=== PATIENT | male | born 1980 | race Two or more races ===

== ENCOUNTER 2018-12-09 14:26 | Emergency (ER) | payer SELFPAY ==
[~2018-12-09] VITALS: Ht 170.2 cm; Wt 72.6 kg
--- NOTE | 2018-12-09 14:42 | NUR ---
ED Nurse Note: patient came in from home, presenting with facial edema, redness on the face and chest area, and total body itching. No swelling on lymphnode noted, patient's airway is patent, patient stated that this happened in this morning, patient denies new product or food use. states no prior allergies. took benadryl at home denies dyspnea or cp
[2018-12-09 14:43] VITALS: BP 116/72
[2018-12-09] MEDS ORDERED: Dexamethasone 4mg/ml vial IVP ONE (15:00)
--- NOTE | 2018-12-09 15:30 | NUR ---
ED Nurse Note: patient's at bedside
[2018-12-09] MEDS ORDERED: Sodium Chloride 500ML 500 ML IV ONE (15:45)
--- NOTE | 2018-12-09 16:24 | Emergency Room Report ---
History of Present Illness General Chief Complaint: Allergic Reaction Source: Patient Present Illness HPI 38-year-old male with no significant past medical history here complaining of one day of pruritic rash on his face and upper trunk and bilateral upper extremities that started after eating chili pepper at a restaurant last night. He reports the rash started immediately after eating chili December which again and one [place] denies anaphylaxis, because he swallowing, difficulty, asthma, palpitation, fever and chills. Patient has been taking Benadryl this morning with minimal relief he complains of increased swelling around his eyes and mouth. Denies abdominal pain, nausea vomiting, denies any recent travel denies smoking and drug use.denies use of new soap or detergent Allergies: Coded Allergies: No Known Allergies (Unverified , 12/09/18) Patient History Past Medical History: see triage record Past Surgical History: unable to obtain Pertinent Family History: none Immunizations: UTD Reviewed Nursing Documentation: PMH: Agreed; PSxH: Agreed Nursing Documentation-PMH Past Medical History: No Stated History Review of Systems All Other Systems: negative except mentioned in HPI Physical Exam Vital Signs Date Time Temp Pulse Resp B/P (MAP) Pulse Ox O2 Delivery O2 Flow Rate FiO2 12/09/18 14:32 97.7 74 20 116/72 97 Room Air Medical Decision Making PA Attestation diagnosis and treatment plans are reviewed and discussed with my supervising physician Dr. Pizano Diagnostic Impression: Primary Impression: Allergic reaction ER Course 38-year-old male with no significant past medical history here complaining of one day of pruritic rash on his face and upper trunk and bilateral upper extremities that started after eating chili pepper at a restaurant last night. He reports the rash started immediately after eating chidecember which again and one [place] denies anaphylaxis, because he swallowing, difficulty, asthma, palpitation, fever and chills. Patient has been taking Benadryl this morning with minimal relief he complains of increased swelling around his eyes and mouth. Denies abdominal pain, nausea vomiting, denies any recent travel denies smoking and drug use. Ddx considered but are not limited to allergic reaction to food, anaphylaxis, angeoedema Vital signs: are WNL, pt. is afebrile H&PE are most consistent with allergic reaction to food without angioedema ORDERS:dexamethasone, IV fluids, prednisone, Benadryl ED INTERVENTIONS: and dexamethasone IV fluid DISCHARGE: At this time pt. is stable for d/c to home. Will provide printed patient care instructions, and any necessary prescriptions. Care plan and follow up instructions have been discussed with the patient prior to discharge. followed with primary care provider for further assessment of possible allergies , if anaphylaxis difficulty swallowing or breathing return to the emergency room Last Vital Signs Date Time Temp Pulse Resp B/P (MAP) Pulse Ox O2 Delivery O2 Flow Rate FiO2 12/09/18 16:15 74 20 Room Air 12/09/18 14:43 97.7 116/72 97 Disposition: HOME, SELF-CARE Condition: Stable Scripts Diphenhydramine Hcl* (BENADRYL ALLERGY*) 12.5 Mg/5 Ml Liquid 12.5 MG ORAL Q6H PRN for Itching, #100 ML 0 Refills Prov: Lanette Weiss 12/09/18 Prednisone* (PREDNISONE*) 20 Mg Tablet 20 MG ORAL DAILY for 3 Days, #3 TAB 0 Refills Prov: Lanette Weiss 12/09/18 Patient Instructions: Food Allergy, Allergies Additional Instructions: follow with primary care provider if symptoms continue for allergy panel is difficulty swallowing or breathing return to the emergency room immediately Lanette Weiss Dec 09, 2018 16:24
[2018-12-09] MEDS ORDERED: BENADRYL A12.5 MG/5 ORAL (16:26)
[2018-12-09] MEDS ORDERED: PREDNISONE20 MG ORAL (16:26)
[2018-12-09 16:43] VITALS: BP 116/72
--- NOTE | 2018-12-09 16:43 | NUR ---
ED Nurse Note: Patient is discharged by MIKEL Gama patient's ID band removed and IV is taken out without any complication. Discharge paper/instruction/prescription given and explained to the patient, patient verbalized understanding. Patient left ED with steady gait with all belongings.
== END 2018-12-09 16:43 | disposition home or self-care (01) ==
LOC: EMR 16:28
DX: T78.40XA Allergy, unspecified, initial encounter (principal); X58.XXXA Exposure to other specified factors, initial encounter
CPT/HCPCS: 96374; 96375; 99284; J1100; S0028